=== PATIENT | male | born 1955 | race Caucasian/White ===

== ENCOUNTER 2018-06-20 09:05 | Day surgery (SDC) | payer OTHER, MEDICAID, SELFPAY ==
[2018-06-20 09:32] VITALS: BP 116/75; PULSE 59; RESP 18; TEMP 36.7; O2SAT 97
[2018-06-20] MEDS: SODIUM CHLORIDE 0.9% 1,000 ML 70 ML IV (09:43)
--- NOTE | 2018-06-20 10:12 | PM.HP.1 ---
History of Present Illness Date Patient Seen: 06/20/18 Chief complaint: [id number] SCREENING COLONOSCOPY W/POSS BX Narrative: 63-year-old male who is here for colon cancer screening. The patient states he had a colonoscopy done around 5 years ago and was told he needed to come back in 5 years. I do not have that report available to me. He denies any history of colon polyps or family history of colon cancer. He denies any GI bleeding at present. He has stopped Plavix for 5 days in preparation for this procedure Patient History Family & Social History Social History: household members none Tobacco & Substance use: Smoking Status Current every day smoker alcohol intake current Meds Home Medications Medication Instructions Recorded Confirmed Type [MULTIPLE VITAMINS] QDAY #0 11/07/12 05/03/18 History fluticasone 0.05 mg INTRANASAL Q DAY PRN PRN 04/20/17 06/20/18 Rx #1 spr albuterol sulfate [Ventolin HFA] 2 puff INH Q4H PRN #8 gm 02/05/18 06/20/18 Rx atorvastatin 40 mg tablet 40 mg PO DAILY 05/03/18 06/20/18 History clopidogrel 75 mg tablet 75 mg PO DAILY 05/03/18 06/20/18 History metoprolol succinate ER 50 mg 50 mg PO DAILY 05/03/18 06/20/18 History tablet,extended release 24 hr Allergies Allergy/AdvReac Type Severity Reaction Status Date / Time penicillin G Allergy Mild HIVES Verified 06/20/18 09:29 Review of Systems Review of Systems All systems reviewed & are unremarkable except as noted in HPI and below Exam Vital Signs (past 8 hours): - 06/20/18 09:32 Temperature 98.0 F Pulse Rate 59 L Respiratory Rate 18 Blood Pressure 116/75 Pulse Oximetry 97 Oxygen Delivery Method Room Air Narrative Exam Narrative: The patient currently denies any abdominal pain or abdominal discomfort. Patient denies any fevers or chills. The patient General: Patient is well developed, not in apparent distress Cardiovascular: Regular rhythm, bradycardic, no murmurs, rubs, or gallops; no evidence of edema; no palpable abdominal aortic aneurysm Gastrointestinal: Normoactive bowel sounds, soft, nontender, nondistended, no rebound tenderness, no hepatosplenomegaly, no evidence of hernia Assessment & Plan Plan: Assessment/Plan Narrative: 63-year-old male here for colon cancer screening. Patient held Plavix in anticipation for the procedure. He is clinically stable at present Regarding the procedure(s), the risks and potential complications, benefits, and alternatives (including not doing the procedure) were discussed with the patient. The risks include but are not limited to bleeding, infection, perforation which may require surgical intervention, missed lesions, and adverse reactions to sedative medicines. After a question and answer period, the patient agreed to proceed with the procedure(s) and gives informed consent.
--- NOTE | 2018-06-20 10:46 | PM.OP.ENDO ---
Operative Date/Time/Diagnoses Date of procedure: 06/20/18 Procedure Notes Procedure in detail: Surgeon: Drake Jaramillo MD Procedure: Colonoscopy with polypectomy Preoperative diagnosis: Colon cancer screening Postoperative diagnosis: Colon polyp status post polypectomy, grade 1 internal hemorrhoids Medications: Conscious sedation using 4 mg IV of Midazolam and 100 mcg IV of Fentanyl Preanesthesia Assessment An H and P was performed/updated and the Px?s ASA class is 2. The procedure was discussed in detail with the patient. The potential risks and complications including infection, bleeding, missed lesions, perforation, need for surgery in case of perforation, prolonged hospital stay, and were explained. A brief question and answer period was allotted and once all questions were answered, informed consent was obtained. The patient was brought back to the procedure room and placed on standard monitoring. The patient?s vital signs were monitored continuously throughout the entire procedure. Prior to starting, a timeout was performed to confirm the patient?s identity, allergies, medications, and procedure. Procedure in detail The patient was placed in left lateral decubitus position and once adequate sedation was obtained a BUFFY was performed. The digital rectal examination did not reveal any palpable lesions. The tip of the colonoscope was placed in the anal canal and advanced without difficulty all the way to the cecum which was identified by the appendiceal orifice and the ileocecal valve. The terminal ileum was intubated for distance of 5 cm with no evidence of mucosal abnormality. The colonoscope was brought back to the cecum and careful examination of all crump of the colon was performed with irrigation of any residual stool. In the sigmoid colon there was note of a 3 mm sessile polyp which was removed in its entirety by means of a cold Jumbo forceps with minimal bleeding. Examination of the remainder of the colon revealed no further mucosal lesions. Retroflexion was performed in the rectum which revealed grade 1 internal hemorrhoids. The patient tolerated the procedure well and will be brought back to the recovery area to be discharged once criteria are met. The prep was judged to be good/excellent and adequate to identify polyps less than 5 mm. The withdrawal time was 9 min. The total procedure time from initial sedation was 13 min. Complications There were no complications and estimated blood loss was minimal. Recommendations: Resume previous diet Resume Plavix today Continue outPx medications Follow up pathology results Repeat colonoscopy in 5 or 10 years depending on pathology results An emergency contact number was given to the patient for any complications related to the procedure
[2018-06-20] MEDS: MIDAZOLAM 5 MG/5 ML VIAL IV (10:54)
[2018-06-20] MEDS: fentaNYL 250 MCG/5 ML INJ IV (10:55)
[2018-06-20 11:05] VITALS: BP 108/72; PULSE 57; RESP 14; TEMP 36.1; O2SAT 94
--- NOTE | 2018-06-20 11:05 | PM.DS.1 ---
History of Present Illness Chief complaint: [id number] SCREENING COLONOSCOPY W/POSS BX Narrative: 63-year-old male who is here for colon cancer screening. The patient states he had a colonoscopy done around 5 years ago and was told he needed to come back in 5 years. I do not have that report available to me. He denies any history of colon polyps or family history of colon cancer. He denies any GI bleeding at present. He has stopped Plavix for 5 days in preparation for this procedure Discharge Providers Primary care physician: Kingsley Gonzales MD Discharge provider: Drake Jaramillo MD Exam Vital Signs (past 8 hours): - 06/20/18 09:32 Temperature 98.0 F Pulse Rate 59 L Respiratory Rate 18 Blood Pressure 116/75 Pulse Oximetry 97 Oxygen Delivery Method Room Air Narrative Exam Narrative: General: Patient is well developed, not in apparent distress Cardiovascular: Regular rate and rhythm, no murmurs, rubs, or gallops; no evidence of edema; no palpable abdominal aortic aneurysm Gastrointestinal: Normoactive bowel sounds, soft, nontender, nondistended, no rebound tenderness, no hepatosplenomegaly, no evidence of hernia Discharge Plan Discharge Plan Patient Disposition: Home, Self-Care Discharge Med Rec/Prescriptions Prescriptions: Continue metoprolol succinate 50 mg tablet extended release 24 hr 50 mg PO DAILY RF: 0 clopidogrel 75 mg tablet 75 mg PO DAILY RF: 0 atorvastatin 40 mg tablet 40 mg PO DAILY RF: 0 [MULTIPLE VITAMINS] QDAY Qty: 0 RF: 0 fluticasone 16 GM spray,suspension 0.05 mg Intranasal Q DAY PRN PRNQty: 1 RF: 5 albuterol sulfate [Ventolin HFA] 90 MCG/PUFF HFA aerosol inhaler 2 puff INH Q4H PRNQty: 8 RF: 5 Discharge Orders: Discharge (Order); Ordered 06/20/18 Ordered By: Drake Jaramillo Provider Discharge Instructions Diet: Diet as Tolerated Visit Report/Discharge Packet Stand Alone Forms: Surgery Discharge Discharge Data Primary Care Provider: Kingsley Gonzales Attending Provider: Drake Jaramillo
--- NOTE | 2018-06-20 22:18 | PATH_ITS ---
Specimen ID: [id number] Control ID: [facility] PATHOLOGY ONLY [id number] [address] Patient Details KELY WILLAMS : 1955 Age(y/m/d): Gender: M SSN: Additional Information: Clinical Info: [id number] Specimen Details Date collected: 06/20/20182217 Local Date received: 06/20/2018 Date entered: 06/20/2018 Date reported: 06/22/20182006 ET Physician Details Ordering: Consuelo DINH Referring: ID: Pathology Report Tests Ordered: Clinician Provided ICD Code(s) & Clinical History: Material Submitted: () Gross Description: (01) Received one formalin-filled container labeled with the patient's name and labeled sigmoid polyp. The specimen consists of a 0.3 cm portion of tissue, entirely submitted in one cassette. ([id number]) /FRR SIGMOID COLON POLYP Diagnosis: (02) Sigmoid Colon Polyp: Hyperplastic polyp. MRV/06/21/2018 Pathologist Provided ICD Code(s): (02) D12.6 CPT Codes: (02) 614004 ADDENDUM: This amendment is issued in order for the results to cross the electronic interface. The final diagnosis is unchanged. OZO/06/22/2018 Addendum Electronically Signed by Diamond Oconnor MD, Pathologist Electronically signed by (02) Teofilo Watts MD, Pathologist NPI- [id number]
== END 2018-06-20 11:23 | disposition home or self-care (01) ==
PROVIDERS: PCP Family Medicine; Visit Provider Internal Medicine Gastroenterology
PROC: 0DJD8ZZ Inspection of Lower Intestinal Tract, Via Natural or Artificial Opening Endoscopic (ICD-10-PCS; CPT 45378; principal; 2018-06-20 10:30)
DX: Z12.11 Encounter for screening for malignant neoplasm of colon (principal); K64.0 First degree hemorrhoids; F17.210 Nicotine dependence, cigarettes, uncomplicated; D12.5 Benign neoplasm of sigmoid colon
CPT/HCPCS: 45380; 88305; J2250; J3010

== ENCOUNTER → 2019-02-28 08:35 | Outpatient (CLI) | payer MEDICARE, SELFPAY ==
[2019-02-28 10:25] LABS: Blood Urea Nitrogen 16 mg/dL (9-20); Calcium 9.9 mg/dL (8.4-10.2); Carbon Dioxide 26 mmol/L (22-32); Chloride 103 mmol/L (98-107); Cholesterol 139 mg/dL (140-199); Estimated Glomerular Filt Rate > 60.0 mL/min (>60); Glucose 142 mg/dL (80-110); HDL Cholesterol 69 mg/dL (40-60); HEMOLYSIS < 15 (0-50); LDL Cholesterol Calculated 63 mg/dL (<100); Potassium 4.5 mmol/L (3.4-5.1); Sodium 137 mmol/L (137-145); Triglycerides 37 mg/dL (35-150)
== END ==
PROVIDERS: PCP Student in an Organized Health Care Education/Training Program; Visit Provider Internal Medicine Interventional Cardiology
DX: I25.10 Atherosclerotic heart disease of native coronary artery without angina pectoris (principal)
CPT/HCPCS: 36415; 80048; 80061

== ENCOUNTER → 2019-08-12 10:41 | Outpatient (CLI) | payer MEDICARE, SELFPAY ==
[2019-08-12 13:01] LABS: Vitamin D 25 Hydroxy (D3) 50.9 ng/mL (30.0-100.0)
[2019-08-12 13:05] LABS: Prostate Specific Antigen Scrn 0.972 ng/mL (0.1-4.0)
[2019-08-12 14:12] LABS: Procalcitonin < 0.05 ng/mL (<0.5)
--- NOTE | 2019-08-12 14:47 | DI.RAD.S_ITS ---
PROCEDURE: XR CHEST 2V INDICATIONS: Cough, wheeze TECHNIQUE: 2 views of the chest were acquired. COMPARISON: [facility], , CHEST 2 VIEW, 10/19/2015, 14:53. FINDINGS: Surgical changes and devices: None. Lungs and pleura: Mildly increased buccal vascular markings and bilateral hilar region are seen with mild bronchial wall thickening suggestive of reactive airway disease. No focal infiltrate. No pleural effusions or pneumothorax. Mediastinum: Mediastinal contours are normal. Heart size is normal. Bones and chest wall: No suspicious bony abnormalities. Soft tissues appear unremarkable. IMPRESSION: Findings suggestive of reactive airway disease such as bronchitis or asthma. No focal infiltrate. Dictated by: Alexandru Velez M.D. on 08/12/2019 at 16:20 Approved by: Alexandru Velez M.D. on 08/12/2019 at 16:21
== END ==
PROVIDERS: PCP Student in an Organized Health Care Education/Training Program; Visit Provider Student in an Organized Health Care Education/Training Program
DX: Z12.5 Encounter for screening for malignant neoplasm of prostate (principal); E55.9 Vitamin D deficiency, unspecified; J22 Unspecified acute lower respiratory infection; R05 Cough; R06.2 Wheezing
CPT/HCPCS: 36415; 71046; 82306; 84145; G0103

== ENCOUNTER → 2021-07-29 08:26 | Outpatient (CLI) | payer MEDICARE, SELFPAY ==
[2021-07-29 10:25] LABS: BUN Creatinine Ratio 25.4 (6-22); Blood Urea Nitrogen 18 mg/dL (9-20); Calcium 9.4 mg/dL (8.4-10.2); Carbon Dioxide 28 mmol/L (22-32); Chloride 106 mmol/L (98-107); Cholesterol 189 mg/dL (140-199); Estimated Glomerular Filt Rate > 60.0 mL/min (>60); Glucose 100 mg/dL (80-110); HDL Cholesterol 55 mg/dL (40-60); HEMOLYSIS < 15 (0-50); LDL Cholesterol Calculated 110 mg/dL (<100); Potassium 4.2 mmol/L (3.4-5.1); Sodium 139 mmol/L (137-145); Triglycerides 122 mg/dL (35-150)
== END ==
PROVIDERS: PCP Student in an Organized Health Care Education/Training Program; Referring Provider Internal Medicine Interventional Cardiology; Visit Provider Internal Medicine Interventional Cardiology
DX: E78.5 Hyperlipidemia, unspecified (principal); I25.10 Atherosclerotic heart disease of native coronary artery without angina pectoris
CPT/HCPCS: 36415; 80048; 80061

== ENCOUNTER → 2021-08-18 13:47 | Outpatient (CLI) | payer MEDICARE, SELFPAY ==
--- NOTE | 2021-08-18 13:48 | DI.NM.S_ITS ---
PROCEDURE: EXERCISE TREADMILL NON NUC COMPARISON: None. INDICATIONS: Presence of coronary angioplasty implant and graft FINDINGS: Resting ECG sinus rhythm. Resting blood pressure 118/80. Reynaldo protocol, 9 minutes, 53 seconds; 12.8 METS; SIMA -23%. Stress ECG sinus tachycardia, occasional PVCs with peak exercise and early in recovery, no ST segment changes. Peak heart rate 146 bpm, 94% peak predicted. Maximum blood pressure 172/100. IMPRESSION: 1. No evidence of exercise-induced ischemia. 2. Excellent exercise capacity. 3. Normal blood pressure response to exercise. Dictated by: Maricruz Mckeon D.O. on 08/19/2021 at 17:56 Approved by: Maricruz Mckeon M.D. on 08/19/2021 at 18:00
[2021-08-18 15:29] LABS: COVID19 -Nasal RAPID Negative (Negative)
== END ==
PROVIDERS: PCP Student in an Organized Health Care Education/Training Program; Referring Provider Internal Medicine Interventional Cardiology; Visit Provider Internal Medicine Interventional Cardiology
DX: I25.10 Atherosclerotic heart disease of native coronary artery without angina pectoris (principal); Z20.822 Contact with and (suspected) exposure to COVID-19; Z95.5 Presence of coronary angioplasty implant and graft
CPT/HCPCS: 87635; 93017

== ENCOUNTER → 2022-05-11 09:11 | Outpatient (CLI) | payer MEDICARE, SELFPAY ==
--- NOTE | 2022-05-11 09:12 | DI.US.S_ITS ---
PROCEDURE: US ABD AORTA ANEURYSM SCREEN INDICATIONS: AORTA SCREENING TECHNIQUE: Real time scanning was performed of the aorta and iliac arteries, with image documentation. COMPARISON: None. FINDINGS: Aorta: Proximal aortic diameter measures 2.7 cm. Mid-aorta measures 2.5 cm. Distal aortic diameter is 2.1 cm. Iliac arteries: Right common iliac artery measures 1 cm. Left common iliac artery measures 1.1 cm. IMPRESSION: Negative for aneurysm. Dictated by: Maximino Huff M.D. on 05/11/2022 at 8:53 Approved by: Maximino Huff M.D. on 05/11/2022 at 8:53
== END ==
PROVIDERS: PCP Student in an Organized Health Care Education/Training Program; Referring Provider Student in an Organized Health Care Education/Training Program; Visit Provider Student in an Organized Health Care Education/Training Program
DX: Z87.891 Personal history of nicotine dependence (principal)
CPT/HCPCS: 76706

== ENCOUNTER → 2022-09-09 07:26 | Outpatient (CLI) | payer MEDICARE, SELFPAY ==
[2022-09-09 08:38] LABS: Add Manual Diff / Slide Review NO; Basophils Absolute Auto 0 /uL (0-100); Basophils Percent Auto 0.5 % (0-2); Eosinophils Absolute Auto 200 /uL (0-450); Eosinophils Percent Auto 3.4 % (2-4); Hematocrit 47.1 % (41-53); Hemoglobin 15.9 g/dL (13.5-17.5); Lymphocytes Absolute Auto 2000 /uL (1100-4500); Lymphocytes Percent Auto 28.6 % (25-40); Mean Corpuscular HGB Conc 33.8 % (30-36); Mean Corpuscular Hemoglobin 34.1 PG (26-34); Mean Corpuscular Volume 100.9 fL (80-100); Monocytes Absolute Auto 600 /uL (0-900); Monocytes Percent Auto 8.1 % (3-14); Neutrophils Absolute Auto 4100 /uL (1500-7000); Neutrophils Percent Auto 59.4 % (50-75); Platelet Count 241 X10^3/uL (150-400); Red Blood Cell Count 4.67 X10^6/uL (4.5-5.9); Red Cell Distribution Width 13.3 % (11.6-14.8); White Blood Cell Count 6.8 X10^3/uL (4.5-11.0)
[2022-09-09 08:55] LABS: Alanine Aminotransferase 24 IU/L (<50); Albumin 4.3 g/dL (3.5-5.0); Albumin Globulin Ratio 1.7 (1.0-2.8); Alkaline Phosphatase 74 U/L (38-126); Aspartate Aminotransferase 28 IU/L (17-59); Bilirubin Total 0.4 mg/dL (0.2-1.3); Blood Urea Nitrogen 20 mg/dL (9-20); Calcium 9.3 mg/dL (8.4-10.2); Carbon Dioxide 28 mmol/L (22-32); Chloride 103 mmol/L (98-107); Cholesterol 174 mg/dL (140-199); Estimated Glomerular Filt Rate > 60 mL/min (>60); Globulin 2.6 g/dL (1.7-4.1); Glucose 96 mg/dL (80-110); HDL Cholesterol 63 mg/dL (40-60); HEMOLYSIS < 15 (0-50); LDL Cholesterol Calculated 96 mg/dL (<100); Potassium 4.6 mmol/L (3.4-5.1); Sodium 141 mmol/L (137-145); Total Protein 6.9 g/dL (6.3-8.2); Triglycerides 77 mg/dL (35-150)
[2022-09-09 09:21] LABS: Prostate Specific Antigen Scrn 1.51 ng/mL (0.1-4.0)
== END ==
PROVIDERS: PCP Student in an Organized Health Care Education/Training Program; Referring Provider Student in an Organized Health Care Education/Training Program; Visit Provider Student in an Organized Health Care Education/Training Program
DX: E78.2 Mixed hyperlipidemia (principal); I10 Essential (primary) hypertension; Z12.5 Encounter for screening for malignant neoplasm of prostate; I25.10 Atherosclerotic heart disease of native coronary artery without angina pectoris
CPT/HCPCS: 36415; 80053; 80061; 85025; G0103

== ENCOUNTER 2023-03-02 08:15 | Outpatient (RCR) | payer MEDICARE, SELFPAY ==
--- NOTE | 2023-02-02 08:10 | PT.OIE ---
Current Diagnoses Pain in right hip (02/02/23) Pain in left hip (02/02/23) Past Medical History (Last Reviewed 06/24/21 @ 09:12 by Antonette Buck MA) Colon polyps Hemorrhoid Shoulder pain Visit Care Team Role Provider Type Ernesto Newell MD Attending Provider Physician Family Provider Primary Care Provider Referring Provider Specialty: Internal Medicine Address: [address] [place] [address], [address], [facility] Email: [email or web address] Physical Therapy Initial Evaluation PT-OP-A Visit Information Start: 02/02/23 08:09 Freq: Status: Active Protocol: Document 02/09/23 08:35 TH (Rec: 02/02/23 16:06 TH [id number]) Out-Patient Physical Therapy Visit Information Visit Information Visit Type Initial Evaluation Visit Start Time 08:15 Visit Stop Time 09:00 Total Visit Minutes 45 Visit Number 1 Number of FURNACE OPERATOR AND TENDER Visits 0 PT-OP-B Current Condition Start: 02/02/23 08:09 Freq: Status: Active Protocol: Document 02/09/23 08:35 TH (Rec: 02/02/23 16:06 TH [id number]) Current Condition History of Current Condition History of Current Condition Pt states that he started to feel bilateral hip pain after changing up his job duties. Pt . is now ambulating more than he had before and moving more stock items around. Pain feels like a pinch when up and walking to a constant ache. Prolonged sitting and walking , transfers sit<>stand are most bothersome. 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 PT-OP-K Range of Motion Start: 02/02/23 08:09 Freq: Status: Active Protocol: Document 02/09/23 08:35 TH (Rec: 02/02/23 16:06 TH [id number]) Lumbar Spine Range of Motion Lumbar Spine Active Flexion 35 Comments Increased weight shift left LE , increased APT, leg length discrepancy left shorter than right, right innominate ant. rot. left, tight ER bilat. , weak hip abd, left SI J hypomobile, hypomobile lumbar spine in flexion. Palpation: tenderness bilat piriformis, gluteus med., Lumbar ROM flex: 35 ext: WNL rot. R = 35 rot l: 20 PT-OP-M Strength Start: 02/02/23 08:09 Freq: Status: Active Protocol: Document 02/09/23 08:35 TH (Rec: 02/02/23 16:06 TH [id number]) Hip Strength Hip Manual Muscle Testing l/r Flexion (L2) 4+ Good+ Extension (S1) 4- Good- Abduction 4- Good- PT-OP-Q Treatments Start: 02/02/23 08:09 Freq: Status: Active Protocol: Document 02/09/23 08:35 TH (Rec: 02/02/23 16:06 TH [id number]) Therapeutic Exercises Other Exercises hamstring stretch Comments 1 x 3 30 sec hold hip flexor stretch Comments 1 x 3 off EOB piriformis stretch Comments 1 x 3 30 sec holds Self-Care/Home Management Treatment Education Patient Education Home Exercise Program Other Education Access Code: [email or web address] URL: [email or web address] Date: 02/02/2023 Prepared by: Sneha Goff Exercises Hooklying Isometric Clamshell - 1 x daily - 7 x weekly - 3 sets - 10 reps Seated Piriformis Stretch with Trunk Bend - 1 x daily - 7 x weekly - 1 sets - 3 reps - 30- 60 sec hold Seated Hamstring Stretch - 1 x daily - 7 x weekly - 1 sets - 3 reps - 30-60sec hold Supine Quadriceps Stretch with Strap on Table - 1 x daily - 7 x weekly - 1 sets - 3 reps - 30-60 sec hold PT-OP-T Assessment and Plan Start: 02/02/23 08:09 Freq: Status: Active Protocol: Document 02/09/23 08:35 TH (Rec: 02/02/23 16:06 TH [id number]) Physical Therapy Assessment Goals 3 Impairment weak gluteus max/med. Short Term Goal (STG) Bilat. glute max/ med will improve to 4/5 STG Duration 03/16/23 Chcf Goal (LTG) Bilat. glute max/med will improve to 5/5 LTG Duration 04/20/23 2 Impairment Lifting weighted boxes repetively causes pain flare. ( work activity) Short Term Goal (STG) Pt will be able to lift 10 lb weighted box from hip level surface and place on higher surface a total of 10 times with minimal hip pain. STG Duration 03/16/23 Chcf Goal (LTG) Pt will be able to lift 10 lb weighted box from hip level surface and place on higher surface a total of 2 x10 times with no hip pain. LTG Duration 04/20/23 1 Impairment Difficult to walk/stand for long periods of time. Short Term Goal (STG) Pt will be able to stand/walk for >= 30 min with bilat hip pain <=4/10. STG Duration 03/16/23 Chcf Goal (LTG) Pt will be able to stand/walk for >= 45 min with minimal to no bilat hip pain LTG Duration 04/20/23 Physical Therapy Plan Frequency and Duration Frequency of Treatment 1-2x Duration of treatment (weeks) 12 Plan of Care Start Date 02/02/23 Plan of Care End Date 05/04/23
--- NOTE | 2023-02-02 16:07 | PT.OTN ---
Current Diagnoses Pain in right hip (02/02/23) Pain in left hip (02/02/23) Physical Therapy Treatment Note PT-OP-A Visit Information Start: 02/02/23 08:09 Freq: Status: Active Protocol: Document 02/02/23 08:10 TH (Rec: 02/02/23 16:06 [id number]) Out-Patient Physical Therapy Visit Information Visit Information Visit Type Initial Evaluation Visit Start Time 08:15 Visit Stop Time 09:00 Total Visit Minutes 45 Visit Number 1 Number of MAIL LIST PROCESSOR Visits 0 PT-OP-B Current Condition Start: 02/02/23 08:09 Freq: Status: Active Protocol: Document 02/02/23 08:10 TH (Rec: 02/02/23 16:06 [id number]) Current Condition History of Current Condition History of Current Condition Pt states that he started to feel bilateral hip pain after changing up his job duties. Pt . is now ambulating more than he had before and moving more stock items around. Pain feels like a pinch when up and walking to a constant ache. Prolonged sitting and walking , transfers sit<>stand are most bothersome. 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 PT-OP-K Range of Motion Start: 02/02/23 08:09 Freq: Status: Active Protocol: Document 02/02/23 08:10 TH (Rec: 02/02/23 16:06 [id number]) Lumbar Spine Range of Motion Lumbar Spine Active Flexion 35 Comments Increased weight shift left LE , increased APT, leg length discrepancy left shorter than right, right innominate ant. rot. left, tight ER bilat. , weak hip abd, left SI J hypomobile, hypomobile lumbar spine in flexion. Palpation: tenderness bilat piriformis, gluteus med., Lumbar ROM flex: 35 ext: WNL rot. R = 35 rot l: 20 PT-OP-M Strength Start: 02/02/23 08:09 Freq: Status: Active Protocol: Document 02/02/23 08:10 TH (Rec: 02/02/23 16:06 TH [id number]) Hip Strength Hip Manual Muscle Testing l/r Flexion (L2) 4+ Good+ Extension (S1) 4- Good- Abduction 4- Good- PT-OP-Q Treatments Start: 02/02/23 08:09 Freq: Status: Active Protocol: Document 02/02/23 08:10 TH (Rec: 02/02/23 16:06 TH [id number]) Therapeutic Exercises Other Exercises hamstring stretch Comments 1 x 3 30 sec hold hip flexor stretch Comments 1 x 3 off EOB piriformis stretch Comments 1 x 3 30 sec holds Self-Care/Home Management Treatment Education Patient Education Home Exercise Program Other Education Access Code: [email or web address] URL: [email or web address] Date: 02/02/2023 Prepared by: Sneha Goff Exercises Hooklying Isometric Clamshell - 1 x daily - 7 x weekly - 3 sets - 10 reps Seated Piriformis Stretch with Trunk Bend - 1 x daily - 7 x weekly - 1 sets - 3 reps - 30- 60 sec hold Seated Hamstring Stretch - 1 x daily - 7 x weekly - 1 sets - 3 reps - 30-60sec hold Supine Quadriceps Stretch with Strap on Table - 1 x daily - 7 x weekly - 1 sets - 3 reps - 30-60 sec hold PT-OP-T Assessment and Plan Start: 02/02/23 08:09 Freq: Status: Active Protocol: Document 02/02/23 08:10 TH (Rec: 02/02/23 16:06 TH [id number]) Physical Therapy Assessment Goals 3 Impairment weak gluteus max/med. Short Term Goal (STG) Bilat. glute max/ med will improve to 4/5 STG Duration 03/16/23 Correction Goal (LTG) Bilat. glute max/med will improve to 5/5 LTG Duration 04/20/23 2 Impairment Lifting weighted boxes repetively causes pain flare. ( work activity) Short Term Goal (STG) Pt will be able to lift 10 lb weighted box from hip level surface and place on higher surface a total of 10 times with minimal hip pain. STG Duration 03/16/23 Correction Goal (LTG) Pt will be able to lift 10 lb weighted box from hip level surface and place on higher surface a total of 2 x10 times with no hip pain. LTG Duration 04/20/23 1 Impairment Difficult to walk/stand for long periods of time. Short Term Goal (STG) Pt will be able to stand/walk for >= 30 min with bilat hip pain <=4/10. STG Duration 03/16/23 Correction Goal (LTG) Pt will be able to stand/walk for >= 45 min with minimal to no bilat hip pain LTG Duration 04/20/23 Physical Therapy Plan Frequency and Duration Frequency of Treatment 1-2x Duration of treatment (weeks) 12 Plan of Care Start Date 02/02/23 Plan of Care End Date 05/04/23
--- NOTE | 2023-02-02 16:08 | PT.OPPOC ---
Physical, Occupational & Speech Therapy At [facility] Current Diagnoses Pain in right hip (02/02/23) Pain in left hip (02/02/23) Visit Care Team Role Provider Type Ernesto Newell MD Attending Provider Physician Family Provider Primary Care Provider Referring Provider Specialty: Internal Medicine Address: [address] [place] [address], [facility] Email: [email or web address] Plan Of Care PT-OP-T Assessment and Plan Start: 02/02/23 08:09 Freq: Status: Active Protocol: Document 02/02/23 08:10 TH (Rec: 02/02/23 16:06 TH [id number]) Physical Therapy Assessment Goals 3 Impairment weak gluteus max/med. Short Term Goal (STG) Bilat. glute max/ med will improve to 4/5 STG Duration 03/16/23 Group Home Goal (LTG) Bilat. glute max/med will improve to 5/5 LTG Duration 04/20/23 2 Impairment Lifting weighted boxes repetively causes pain flare. ( work activity) Short Term Goal (STG) Pt will be able to lift 10 lb weighted box from hip level surface and place on higher surface a total of 10 times with minimal hip pain. STG Duration 03/16/23 Group Home Goal (LTG) Pt will be able to lift 10 lb weighted box from hip level surface and place on higher surface a total of 2 x10 times with no hip pain. LTG Duration 04/20/23 1 Impairment Difficult to walk/stand for long periods of time. Short Term Goal (STG) Pt will be able to stand/walk for >= 30 min with bilat hip pain <=4/10. STG Duration 03/16/23 Kennel Assistant Goal (LTG) Pt will be able to stand/walk for >= 45 min with minimal to no bilat hip pain LTG Duration 04/20/23 Physical Therapy Plan Frequency and Duration Frequency of Treatment 1-2x Duration of treatment (weeks) 12 Plan of Care Start Date 02/02/23 Plan of Care End Date 05/04/23 Plan of Care Dates Plan of Care Start Date 02/02/23 Plan of Care End Date 05/04/23 Electronically Signed by: Sneha Goff, PT 02/02/23 1608 If you are in agreement with this Plan of Care, please return a signed and dated copy. I have reviewed this Plan of Care and certify that the skilled therapy services above are required to meet the patient?s needs. Physician Signature Date Printed Name and Credentials Clinical Instructor Signature Printed Name and Credentials
--- NOTE | 2023-02-09 08:12 | PT.OIE ---
Current Diagnoses Pain in right hip (02/02/23) Pain in left hip (02/02/23) Past Medical History (Last Reviewed 06/24/21 @ 09:12 by Antonette Buck MA) Colon polyps Hemorrhoid Shoulder pain Visit Care Team Role Provider Type Ernesto Newell MD Attending Provider Physician Family Provider Primary Care Provider Referring Provider Specialty: Internal Medicine Address: [address] [place] [address], [address], [facility] Email: [email or web address] Physical Therapy Initial Evaluation PT-OP-A Visit Information Start: 02/02/23 08:09 Freq: Status: Active Protocol: Document 02/02/23 08:10 TH (Rec: 02/02/23 16:06 [id number]) Out-Patient Physical Therapy Visit Information Visit Information Visit Type Initial Evaluation Visit Start Time 08:15 Visit Stop Time 09:00 Total Visit Minutes 45 Visit Number 1 Number of SINTERING PLANT SUPERVISOR Visits 0 PT-OP-B Current Condition Start: 02/02/23 08:09 Freq: Status: Active Protocol: Document 02/02/23 08:10 TH (Rec: 02/02/23 16:06 [id number]) Current Condition History of Current Condition History of Current Condition Pt states that he started to feel bilateral hip pain after changing up his job duties. Pt . is now ambulating more than he had before and moving more stock items around. Pain feels like a pinch when up and walking to a constant ache. Prolonged sitting and walking , transfers sit<>stand are most bothersome. 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 PT-OP-K Range of Motion Start: 02/02/23 08:09 Freq: Status: Active Protocol: Document 02/02/23 08:10 TH (Rec: 02/02/23 16:06 [id number]) Lumbar Spine Range of Motion Lumbar Spine Active Flexion 35 Comments Increased weight shift left LE , increased APT, leg length discrepancy left shorter than right, right innominate ant. rot. left, tight ER bilat. , weak hip abd, left SI J hypomobile, hypomobile lumbar spine in flexion. Palpation: tenderness bilat piriformis, gluteus med., Lumbar ROM flex: 35 ext: WNL rot. R = 35 rot l: 20 PT-OP-M Strength Start: 02/02/23 08:09 Freq: Status: Active Protocol: Document 02/02/23 08:10 TH (Rec: 02/02/23 16:06 TH [id number]) Hip Strength Hip Manual Muscle Testing l/r Flexion (L2) 4+ Good+ Extension (S1) 4- Good- Abduction 4- Good- PT-OP-Q Treatments Start: 02/02/23 08:09 Freq: Status: Active Protocol: Document 02/02/23 08:10 TH (Rec: 02/02/23 16:06 TH [id number]) Therapeutic Exercises Other Exercises hamstring stretch Comments 1 x 3 30 sec hold hip flexor stretch Comments 1 x 3 off EOB piriformis stretch Comments 1 x 3 30 sec holds Self-Care/Home Management Treatment Education Patient Education Home Exercise Program Other Education Access Code: [email or web address] URL: [email or web address] Date: 02/02/2023 Prepared by: Sneha Goff Exercises Hooklying Isometric Clamshell - 1 x daily - 7 x weekly - 3 sets - 10 reps Seated Piriformis Stretch with Trunk Bend - 1 x daily - 7 x weekly - 1 sets - 3 reps - 30- 60 sec hold Seated Hamstring Stretch - 1 x daily - 7 x weekly - 1 sets - 3 reps - 30-60sec hold Supine Quadriceps Stretch with Strap on Table - 1 x daily - 7 x weekly - 1 sets - 3 reps - 30-60 sec hold PT-OP-T Assessment and Plan Start: 02/02/23 08:09 Freq: Status: Active Protocol: Document 02/02/23 08:10 TH (Rec: 02/02/23 16:06 TH [id number]) Physical Therapy Assessment Goals 3 Impairment weak gluteus max/med. Short Term Goal (STG) Bilat. glute max/ med will improve to 4/5 STG Duration 03/16/23 Long-Term Goal (LTG) Bilat. glute max/med will improve to 5/5 LTG Duration 04/20/23 2 Impairment Lifting weighted boxes repetively causes pain flare. ( work activity) Short Term Goal (STG) Pt will be able to lift 10 lb weighted box from hip level surface and place on higher surface a total of 10 times with minimal hip pain. STG Duration 03/16/23 Long-Term Goal (LTG) Pt will be able to lift 10 lb weighted box from hip level surface and place on higher surface a total of 2 x10 times with no hip pain. LTG Duration 04/20/23 1 Impairment Difficult to walk/stand for long periods of time. Short Term Goal (STG) Pt will be able to stand/walk for >= 30 min with bilat hip pain <=4/10. STG Duration 03/16/23 Long-Term Goal (LTG) Pt will be able to stand/walk for >= 45 min with minimal to no bilat hip pain LTG Duration 04/20/23 Physical Therapy Plan Frequency and Duration Frequency of Treatment 1-2x Duration of treatment (weeks) 12 Plan of Care Start Date 02/02/23 Plan of Care End Date 05/04/23
--- NOTE | 2023-03-02 09:06 | PT.OTN ---
Current Diagnoses Pain in right hip (03/02/23) Pain in left hip (03/02/23) Physical Therapy Treatment Note PT-OP-A Visit Information Start: 02/02/23 08:09 Freq: Status: Active Protocol: Document 03/02/23 08:23 TH (Rec: 03/02/23 09:05 [id number]) Out-Patient Physical Therapy Visit Information Visit Information Visit Type Treatment Note Visit Start Time 08:15 Visit Stop Time 09:00 Total Visit Minutes 45 Visit Number 2 Number of REPRODUCTION SPECIALIST Visits 0 PT-OP-B Current Condition Start: 02/02/23 08:09 Freq: Status: Active Protocol: Document 02/02/23 08:10 TH (Rec: 02/02/23 16:06 [id number]) Current Condition History of Current Condition History of Current Condition Pt states that he started to feel bilateral hip pain after changing up his job duties. Pt . is now ambulating more than he had before and moving more stock items around. Pain feels like a pinch when up and walking to a constant ache. Prolonged sitting and walking , transfers sit<>stand are most bothersome. 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 PT-OP-C Subjective Start: 02/02/23 08:09 Freq: Status: Active Protocol: Document 03/02/23 08:23 TH (Rec: 03/02/23 09:05 TH [id number]) OP-PT Subjective Patient Comments Patient Comments Pt states that bilat. hip pain is not as bad as it had been. He has been doing some of the assigned stretches and less activity. PT-OP-K Range of Motion Start: 02/02/23 08:09 Freq: Status: Active Protocol: Document 02/02/23 08:10 TH (Rec: 02/02/23 16:06 TH [id number]) Lumbar Spine Range of Motion Lumbar Spine Active Flexion 35 Comments Increased weight shift left LE , increased APT, leg length discrepancy left shorter than right, right innominate ant. rot. left, tight ER bilat. , weak hip abd, left SI J hypomobile, hypomobile lumbar spine in flexion. Palpation: tenderness bilat piriformis, gluteus med., Lumbar ROM flex: 35 ext: WNL rot. R = 35 rot l: 20 PT-OP-M Strength Start: 02/02/23 08:09 Freq: Status: Active Protocol: Document 02/02/23 08:10 TH (Rec: 02/02/23 16:06 TH [id number]) Hip Strength Hip Manual Muscle Testing l/r Flexion (L2) 4+ Good+ Extension (S1) 4- Good- Abduction 4- Good- PT-OP-Q Treatments Start: 02/02/23 08:09 Freq: Status: Active Protocol: Document 03/02/23 08:23 TH (Rec: 03/02/23 09:05 TH [id number]) Therapeutic Exercises Other Exercises hip hike Comments 1 x 10 5 sec holds ( 5 on each side) psoas release with tennis ball Comments bilat hips 2 min hip flexor stretch Comments 1 x 2 bilat 30 sec holds Manual Therapy Treatment Manual Techniques long axis traction Comments left LE iliopsoas release Comments right Self-Care/Home Management Treatment Education Other Education Access Code: [email or web address] URL: [email or web address]/ Date: 03/02/2023 Prepared by: Sneha Huiras Exercises - Hooklying Isometric Clamshell - 1 x daily - 7 x weekly - 3 sets - 10 reps - Seated Piriformis Stretch with Trunk Bend - 1 x daily - 7 x weekly - 1 sets - 3 reps - 30-60 sec hold - Seated Hamstring Stretch - 1 x daily - 7 x weekly - 1 sets - 3 reps - 30-60sec hold - Supine Quadriceps Stretch with Strap on Table - 1 x daily - 7 x weekly - 1 sets - 3 reps - 30-60 sec hold - Supine Hip Hike - 1 x daily - 7 x weekly - 1 sets - 10 reps PT-OP-T Assessment and Plan Start: 02/02/23 08:09 Freq: Status: Active Protocol: Document 03/02/23 08:23 TH (Rec: 03/02/23 09:05 TH [id number]) Physical Therapy Assessment Goals 3 Impairment weak gluteus max/med. Short Term Goal (STG) Bilat. glute max/ med will improve to 4/5 STG Duration 03/16/23 Window Repairer Goal (LTG) Bilat. glute max/med will improve to 5/5 LTG Duration 04/20/23 2 Impairment Lifting weighted boxes repetively causes pain flare. ( work activity) Short Term Goal (STG) Pt will be able to lift 10 lb weighted box from hip level surface and place on higher surface a total of 10 times with minimal hip pain. STG Duration 03/16/23 Window Repairer Goal (LTG) Pt will be able to lift 10 lb weighted box from hip level surface and place on higher surface a total of 2 x10 times with no hip pain. LTG Duration 04/20/23 1 Impairment Difficult to walk/stand for long periods of time. Short Term Goal (STG) Pt will be able to stand/walk for >= 30 min with bilat hip pain <=4/10. STG Duration 03/16/23 Retirement Goal (LTG) Pt will be able to stand/walk for >= 45 min with minimal to no bilat hip pain LTG Duration 04/20/23 Assessment Summary Assessment Pt making steady progress as demonstrated by decreased symptoms. Noted right hip remains ant. rot. left LE shorter than than right by about an half inch. After therapy left leg a quarter inch shorter. Physical Therapy Plan Frequency and Duration Frequency of Treatment 1-2x Duration of treatment (weeks) 12 Plan of Care Start Date 02/02/23 Plan of Care End Date 05/04/23 Therapeutic Interventions Therapeutic Interventions Balance Training,Coordination Training,Gait Training,Home Exercise Program,Joint Mobilizations,Manual Therapy, Neuromuscular Re-education, Orthotic/Prosthetic Management ,Patient/Caregiver Education, Self-Care/Home Management, Sensory Integration,Soft Tissue Mobilization,Taping, Therapeutic Activities, Therapeutic Exercises Next Visit Focus/Plan Next Visit Plan Manual hip strengthening ex. hip abd/ ext
--- NOTE | 2023-03-20 16:31 | PT.OPDS ---
Current Diagnoses Pain in right hip (03/02/23) Pain in left hip (03/02/23) Visit Care Team Role Provider Type Ernesto Newell MD Attending Provider Physician Family Provider Primary Care Provider Referring Provider Specialty: Internal Medicine Address: [address] [place] [address], [address], [facility] Email: [email or web address] Visit Number Visit Number 2 Discharge Summary PT-OP-B Current Condition Start: 02/02/23 08:09 Freq: Status: Active Protocol: Document 02/02/23 08:10 TH (Rec: 02/02/23 16:06 [id number]) Current Condition History of Current Condition History of Current Condition Pt states that he started to feel bilateral hip pain after changing up his job duties. Pt . is now ambulating more than he had before and moving more stock items around. Pain feels like a pinch when up and walking to a constant ache. Prolonged sitting and walking , transfers sit<>stand are most bothersome. 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 PT-OP-C Subjective Start: 02/02/23 08:09 Freq: Status: Active Protocol: Document 03/02/23 08:23 TH (Rec: 03/02/23 09:05 TH [id number]) OP-PT Subjective Patient Comments Patient Comments Pt states that bilat. hip pain is not as bad as it had been. He has been doing some of the assigned stretches and less activity. PT-OP-K Range of Motion Start: 02/02/23 08:09 Freq: Status: Active Protocol: Document 02/02/23 08:10 TH (Rec: 02/02/23 16:06 TH [id number]) Lumbar Spine Range of Motion Lumbar Spine Active Flexion 35 Comments Increased weight shift left LE , increased APT, leg length discrepancy left shorter than right, right innominate ant. rot. left, tight ER bilat. , weak hip abd, left SI J hypomobile, hypomobile lumbar spine in flexion. Palpation: tenderness bilat piriformis, gluteus med., Lumbar ROM flex: 35 ext: WNL rot. R = 35 rot l: 20 PT-OP-M Strength Start: 02/02/23 08:09 Freq: Status: Active Protocol: Document 02/02/23 08:10 TH (Rec: 02/02/23 16:06 TH [id number]) Hip Strength Hip Manual Muscle Testing l/r Flexion (L2) 4+ Good+ Extension (S1) 4- Good- Abduction 4- Good- PT-OP-T Assessment and Plan Start: 02/02/23 08:09 Freq: Status: Active Protocol: Document 03/20/23 16:31 [facility] (Rec: 03/20/23 16:31 [facility] [id number]) Physical Therapy Assessment Goals 3 Impairment weak gluteus max/med. Short Term Goal (STG) Bilat. glute max/ med will improve to 4/5 STG Duration 03/16/23 Coding Support Specialist Goal (LTG) Bilat. glute max/med will improve to 5/5 LTG Duration 04/20/23 2 Impairment Lifting weighted boxes repetively causes pain flare. ( work activity) Short Term Goal (STG) Pt will be able to lift 10 lb weighted box from hip level surface and place on higher surface a total of 10 times with minimal hip pain. STG Duration 03/16/23 Coding Support Specialist Goal (LTG) Pt will be able to lift 10 lb weighted box from hip level surface and place on higher surface a total of 2 x10 times with no hip pain. LTG Duration 04/20/23 1 Impairment Difficult to walk/stand for long periods of time. Short Term Goal (STG) Pt will be able to stand/walk for >= 30 min with bilat hip pain <=4/10. STG Duration 03/16/23 Halfway Goal (LTG) Pt will be able to stand/walk for >= 45 min with minimal to no bilat hip pain LTG Duration 04/20/23 Assessment Summary Assessment Pt was called to adjust appts and pt reports that he is doing well and no longer needs PT. DC at this time per pt request as he reports he feels good at this time. Physical Therapy Plan Discharge Physical Therapy Discharge Reasons Patient Request
== END 2023-03-21 12:48 | disposition home or self-care (01) ==
LOC: PHYS 08:15
PROVIDERS: Absent Provider Student in an Organized Health Care Education/Training Program; Family Provider Student in an Organized Health Care Education/Training Program; PCP Student in an Organized Health Care Education/Training Program; Referring Provider Student in an Organized Health Care Education/Training Program; Visit Provider Student in an Organized Health Care Education/Training Program
DX: M25.551 Pain in right hip (principal); M25.552 Pain in left hip
CPT/HCPCS: 97110; 97140; 97161

== ENCOUNTER 2023-03-23 09:37 | Day surgery (SDC) | payer MEDICARE, SELFPAY ==
--- NOTE | 2023-03-23 | PATH_ITS ---
[facility] Accession Number: [id number] No. of containers..01 Tissue . 01 Material submitted: . rectum - RECTAL POLYP . 01 Diagnosis: Rectal Polyp: Hyperplastic polyp. MRV 03/28/2023 1353 Local . 01 Electronically signed: . Ramone Reynolds MD, PhD, Pathologist NPI- [id number] . 01 Gross description: . RECTAL POLYP: Received in formalin is 1 fragment(s) of mejia, soft tissue measuring 0.3 x 0.3 x 0.3 cm submitted entirely in 1 cassette(s) /TRC 03/24/2023 1550 Local . 01 Pathologist provided ICD-10: K62.1 . 01 CPT . 741893 Specimen Comment: A courtesy copy of this report has been sent to [phone] Performed at: 01 [facility] [address] [place] [address], [place], [place] [id number] MD Dimitri Haynes MD Phone: [phone]
[2023-03-23] MEDS: LACTATED RINGERS 1,000 ML 42 ML IV (10:03)
[2023-03-23 10:14] VITALS: BP 129/81; PULSE 62; RESP 20; TEMP 36.1; O2SAT 98; BMI 25.1
--- NOTE | 2023-03-23 10:50 | PM.HP.1 ---
History of Present Illness History of Present Illness Date Patient Seen: 03/23/23 Time Patient Seen: 10:50 Chief complaint: Screening Colonoscopy Narrative: Jong Gutierrez is a 67-year-old man who is here for his colonoscopy. His last 1 was in 2018 and a hyperplastic polyp was removed. He has had rectal bleeding and hemorrhoid banding within the past few years. He had an episode many years ago where he had thrombosed internal hemorrhoids that were treated in [facility]. [facility] Medical History Colon polyps Hemorrhoid Shoulder pain Social History household members: none Smoking Status: Current every day smoker alcohol intake: current substance use type: does not use Meds Home Medications and Allergies Home Medications Medication Instructions Recorded Confirmed Type [MULTIPLE VITAMINS] 1 tab PO QDAY ##0 11/07/12 03/23/23 History albuterol sulfate 90 mcg/actuation 2 puff inhalation Q4H PRN 03/23/22 03/23/23 Rx aerosol inhaler (Ventolin HFA) shortness of breath or wheezing #18 grams atorvastatin 20 mg tablet 20 mg PO QPM 01/23/23 03/23/23 History metoprolol succinate 25 mg 25 mg PO DAILY 01/23/23 03/23/23 History tablet,extended release 24 hr Allergies Allergy/AdvReac Type Severity Reaction Status Date / Time penicillin G Allergy Mild HIVES Verified 03/23/23 10:05 Exam Vital Signs (past 8 hours): - 03/23/23 10:14 Temperature 97 F L Pulse Rate 62 Respiratory Rate 20 Blood Pressure 129/81 Pulse Oximetry 98 Oxygen Delivery Method Room Air Oxygen Delivery Method Room Air Const General: healthy appearing Assessment & Plan Assessment and plan (1) Colon cancer screening: Status: Acute Plan We reviewed the risks and benefits of colonoscopy for colon cancer screening and he would like to proceed
--- NOTE | 2023-03-23 12:47 | PM.OP.COLON ---
Operative Date/Time/Diagnoses Date of procedure: 03/23/23 Time of procedure: 12:47 Pre-op diagnosis: Cancer screening and hemorrhoids Post-op diagnosis: same Procedure & Clinicians Study performed: Colonoscopy and rubber-band ligation Same procedure as scheduled: Yes Surgeon: Jong Whiting Procedure Notes Procedure in detail: Surgeon: Jong Whiting MD Anesthesia: Randi Thompson EDGE BONDER Procedure: The patient was brought to the endoscopy suite, placed in left lateral decubitus position. The patient was connected to monitoring devices. A time-out was performed. Sedation was administered. Once the patient was adequately sedated, a digital rectal exam was performed and a left internal hemorrhoid was reduced. The scope was then inserted and advanced to the cecum where the appendiceal orifice was identified and photographed. The scope was then slowly withdrawn over greater than 6 minutes. The mucosa was thoroughly inspected. Was a 2 mm rectal polyp removed with the Jumbo forceps. The scope was retroflexed in the rectum. Some internal hemorrhoids were seen. The scope was straightened and removed. Next rubber-band ligation was performed. Rubber bands were placed in the right posterior and left lateral position. The patient was awakened and brought to recovery. Scope withdrawal time: 13 minutes Sedation time: 17 minutes EBL: 2 mL Findings: Small rectal polyp and internal hemorrhoids Post-procedure Disposition: PACU
[2023-03-23 12:49] VITALS: BP 105/59; PULSE 54; RESP 23; TEMP 36.4; O2SAT 100
[2023-03-23 12:55] VITALS: BP 97/62; PULSE 56; RESP 12; O2SAT 95
[2023-03-23 12:58] VITALS: PULSE 58; RESP 15; TEMP 36.4; O2SAT 96
[2023-03-23 12:59] VITALS: BP 115/66
== END 2023-03-23 13:05 | disposition home or self-care (01) ==
PROVIDERS: Family Provider Student in an Organized Health Care Education/Training Program; PCP Student in an Organized Health Care Education/Training Program; Referring Provider Surgery; Visit Provider Surgery
PROC: 0DJD8ZZ Inspection of Lower Intestinal Tract, Via Natural or Artificial Opening Endoscopic (ICD-10-PCS; CPT 45378; principal; 2023-03-23 10:45)
DX: Z12.11 Encounter for screening for malignant neoplasm of colon (principal); K64.8 Other hemorrhoids; K62.1 Rectal polyp
CPT/HCPCS: 45380; 46221; J2704

== ENCOUNTER → 2023-08-10 15:10 | Outpatient (CLI) | payer MEDICARE, SELFPAY ==
--- NOTE | 2023-08-10 15:11 | DI.RAD.S_ITS ---
PROCEDURE: XR HIP W PEL IF DONE BILAT 2V INDICATIONS: Hip pain TECHNIQUE: AP pelvis with lateral view(s) of the left on the right hip(s). COMPARISON: None. FINDINGS: Bones: No fractures or dislocations. Pelvic ring appears intact. No suspicious bony lesions. Mild osteoarthritis bilaterally. Soft tissues: The visualized bowel gas pattern is normal. No suspicious soft tissue calcifications. IMPRESSION: Mild osteoarthritis. Dictated by: Rika Stanton M.D. on 08/10/2023 at 16:29 Approved by: Rika Stanton M.D. on 08/10/2023 at 16:30
== END ==
PROVIDERS: Family Provider Student in an Organized Health Care Education/Training Program; PCP Student in an Organized Health Care Education/Training Program; Referring Provider Nurse Practitioner Family; Visit Provider Nurse Practitioner Family
DX: M16.0 Bilateral primary osteoarthritis of hip (principal); M25.551 Pain in right hip; M25.552 Pain in left hip
CPT/HCPCS: 73521

== ENCOUNTER 2023-08-25 23:27 | Emergency (ER) | payer MEDICARE, SELFPAY ==
[2023-08-25 23:38] VITALS: BP 135/80; PULSE 75; RESP 16; TEMP 36.4; O2SAT 94
--- NOTE | 2023-08-26 00:52 | ED_ITS ---
HPI - Dental/Oral General Chief complaint: Dental/Oral Stated complaint: having reaction from meds rt side face swollen Time Seen by Provider: 08/26/23 00:52 Source: patient Mode of arrival: Ambulatory History of Present Illness HPI Narrative: Patient is a 68-year-old male who presents with ongoing dental infection. He reports he has been on clindamycin for the last 4 days he is scheduled to have a tooth extraction next week. However he continues to have pain and today has increased swelling. No difficulty breathing or swallowing. No fever chills. No redness. He reports that he is allergic to penicillin but he was told that as a small child he is not ever actually had it. Related Data Home Medications Medication Instructions Recorded Confirmed [MULTIPLE VITAMINS] 1 tab PO QDAY ##0 11/07/12 08/10/23 atorvastatin 20 mg tablet 20 mg PO QPM 01/23/23 08/10/23 metoprolol succinate 25 mg 25 mg PO DAILY 01/23/23 08/10/23 tablet,extended release 24 hr Previous Rx's Medication Instructions Recorded albuterol sulfate 90 mcg/actuation 2 puff inhalation Q4H PRN 03/23/22 aerosol inhaler (Ventolin HFA) shortness of breath or wheezing #18 grams cefuroxime axetil 500 mg tablet 500 mg PO BID #14 tabs 08/26/23 hydrocodone 5 mg-acetaminophen 325 1 tab PO Q6H PRN pain #10 tabs 08/26/23 mg tablet Allergies Allergy/AdvReac Type Severity Reaction Status Date / Time penicillin G Allergy Mild HIVES Verified 08/10/23 14:41 Review of Systems Review of Systems ROS Unobtainable: All systems reviewed & are unremarkable except as noted in HPI and below Patient History Medical History Shoulder pain Hemorrhoid Colon polyps Social History household members: none Smoking Status: Current every day smoker alcohol intake: current substance use type: does not use Smoking Status: Current every day smoker tobacco type: cigarettes alcohol intake frequency: a few times a week Substance Use Type: does not use Exam Initial Vital Signs Initial Vital Signs: Vital Signs Temperature 97.6 F 08/25/23 23:38 Pulse Rate 75 10/06/23 23:38 Respiratory Rate 16 08/25/23 23:38 Blood Pressure 135/80 08/25/23 23:38 Pulse Oximetry 94 08/25/23 23:38 Oxygen Delivery Method Room Air 08/25/23 23:38 GENERAL: Well-appearing, well-nourished and in no acute distress. MOTH: Pain around tooth 29/30, with chipped tooth. Cheek is mildly swollen no significant erythema no trismus no obvious dental abscess CARDIOVASCULAR: peripheral pulses in tact, cap refill <2 sec RESPIRATORY: No respiratory distress, speaks in full sentences without difficulty EXTREMITIES: Normal range of motion, no clubbing or edema. Neurovascularly intact NEUROLOGICAL: Cranial nerves II through XII grossly intact. Normal gait and speech. SKIN: Warm, dry, no petechiae, no rashes or lesions. Course Orders Ordered: Discontinued Medications Hydrocodone Bitart/Acetaminophen (Hydrocodone/Acet 5/325 Prepack) 1 bottle MISC SEEINSTR ONE Stop: 08/26/23 01:09 Last Admin: 08/26/23 01:26 Dose: 1 bottle Documented By: EVERT Cefuroxime Axetil (Cefuroxime 250 Mg Tablet) 500 mg PO NOW ONE Stop: 08/26/23 01:12 Last Admin: 08/26/23 01:25 Dose: 500 mg Documented By: EVERT Vital Signs Vital signs: Vital Signs - 8 hr 08/25/23 23:38 08/26/23 01:35 Temperature 97.6 F 97.5 F L Pulse Rate 75 74 Respiratory Rate 16 16 Blood Pressure 135/80 130/70 Pulse Oximetry 94 98 Oxygen Delivery Method Room Air Room Air MDM - Dental/Oral MDM Narrative Medical decision making narrative: Patient has ongoing dental infection he has been on 4 days of clindamycin was increased swelling and pain. No obvious source of sepsis no concern for Shai's angina or deep neck infection. Is allergic to penicillin but was told to has a small child we discussed using it however cephalosporin maybe a better alternative. We will start him on Ceftin, continue clindamycin give pain meds and he is scheduled to see a dentist next week. Discharge Plan Departure Patient Disposition: Home Clinical Impression: Dental infection Instructions: DI for Dental Pain Activity Restrictions/Additional Instructions: *You have been diagnosed with dental infection *What to do: At this time change appear antibiotic. Please see her dentist for further treatment *Continue to take medications as directed-->[facility] Continue taking clindamycin Start taking Ceftin 500 mg twice a day [place] 1 tablet every 6 hours if needed for severe pain Motrin 600 mg every 6 hours if needed for [id number] pain *Follow up with your primary care provider in 2-3 days or call [phone] *Return to ER if you should have increasing pain swelling redness difficulty opening mouth difficulty swallowing or any new, worsening or concerning symptoms CONTROLLED SUBSTANCE DISCHARGE (Narcotoic/benzodiazepine/Flexeril/Phenergan) 1. You have been prescribed narcotic medications, it does have acetaminophen/Tylenol/paracetamol in it, DO NOT TAKE MORE THAN 4,00mg in 24 hours of Tylenol. TRAMADOL DOES NOT CONTAIN TYLENOL 2. Please understand that we cannot provide further refills of narcotics, benzodiazepines or controlled substances through the ED and her pain management will need to be through your provider. 3. While on these medications you cannot drive or operate heavy machinery. 4. You cannot sign legal documents or perform any duties such as this. 5. As long as you're taking opiate pain medications he should also be taking a stool softener such as Colace, Dulcolax, MiraLAX or prune juice, to help avoid constipation. Prescriptions: New cefuroxime axetil 500 mg tablet 500 mg PO BID Qty: 14 0RF hydrocodone-acetaminophen 5-325 mg tablet 1 tab PO Q6H PRN (Reason: pain) Qty: 10 0RF No Action [MULTIPLE VITAMINS] 1 tab PO QDAY Qty: 0 albuterol sulfate [Ventolin HFA] 90 mcg/actuation HFA aerosol inhaler 2 puff inhalation Q4H PRN (Reason: shortness of breath or wheezing) Qty: 18 11RF metoprolol succinate 25 mg tablet extended release 24 hr 25 mg PO DAILY atorvastatin 20 mg tablet 20 mg PO QPM Referrals: Ernesto Newell MD [Primary Care Provider] - Stand Alone Forms: Patient Portal/API
[2023-08-26] MEDS: cefUROXime 250 MG TABLET 500 MG PO (01:25)
[2023-08-26] MEDS: HYDROCODONE/ACET 5/325 PREPACK 1 BOTTLE MISC (01:26)
[2023-08-26 01:35] VITALS: BP 130/70; PULSE 74; RESP 16; TEMP 36.4; O2SAT 98
== END 2023-08-26 01:36 | disposition home or self-care (01) ==
PROVIDERS: Emergency Provider Emergency Medicine; Family Provider Student in an Organized Health Care Education/Training Program; PCP Student in an Organized Health Care Education/Training Program
DX: K04.7 Periapical abscess without sinus (principal); Z88.0 Allergy status to penicillin
CPT/HCPCS: 99283

== ENCOUNTER → 2024-05-01 11:30 | Outpatient (CLI) | payer MEDICARE, SELFPAY ==
[2024-05-01 12:23] LABS: Hemoglobin A1C% w Est Avg Glu 5.3 % (4.0-6.0)
[2024-05-01 12:24] LABS: Add Manual Diff / Slide Review NO; Basophils Absolute Auto 0 /uL (0-100); Basophils Percent Auto 0.6 % (0-2); Eosinophils Absolute Auto 100 /uL (0-450); Eosinophils Percent Auto 2.3 % (2-4); Hematocrit 43.3 % (41-53); Hemoglobin 14.8 g/dL (13.5-17.5); Lymphocytes Absolute Auto 2100 /uL (1100-4500); Lymphocytes Percent Auto 34.4 % (25-40); Mean Corpuscular HGB Conc 34.1 % (30-36); Mean Corpuscular Volume 99.6 fL (80-100); Monocytes Absolute Auto 400 /uL (0-900); Monocytes Percent Auto 6.5 % (3-14); Neutrophils Absolute Auto 3400 /uL (1500-7000); Neutrophils Percent Auto 56.2 % (50-75); Platelet Count 249 X10^3/uL (150-400); Red Blood Cell Count 4.35 X10^6/uL (4.5-5.9); Red Cell Distribution Width 13.7 % (11.6-14.8); White Blood Cell Count 6.1 X10^3/uL (4.5-11.0)
[2024-05-01 12:34] LABS: Alanine Aminotransferase 23 IU/L (<50); Albumin 4.3 g/dL (3.5-5.0); Albumin Globulin Ratio 1.7 (1.0-2.8); Alkaline Phosphatase 63 U/L (38-126); Aspartate Aminotransferase 30 IU/L (17-59); BUN Creatinine Ratio 31.3 (6-22); Bilirubin Total 0.6 mg/dL (0.2-1.3); Blood Urea Nitrogen 20 mg/dL (9-20); Calcium 9.1 mg/dL (8.4-10.2); Carbon Dioxide 25 mmol/L (22-32); Chloride 110 mmol/L (98-107); Cholesterol 229 mg/dL (140-199); Estimated Glomerular Filt Rate > 60 mL/min (>60); Globulin 2.5 g/dL (1.7-4.1); Glucose 100 mg/dL (80-110); HDL Cholesterol 69 mg/dL (40-60); HEMOLYSIS 19 (0-50); LDL Cholesterol Calculated 134 mg/dL (<100); Potassium 4.4 mmol/L (3.4-5.1); Sodium 138 mmol/L (137-145); Total Protein 6.8 g/dL (6.3-8.2); Triglycerides 131 mg/dL (35-150)
[2024-05-01 12:56] LABS: Free T4, Direct Thyroxine 1.05 ng/dL (0.78-2.19)
[2024-05-01 13:10] LABS: Thyroid Stimulating Hormone 1.17 uIU/mL (0.47-4.68)
== END ==
LOC: LAB 11:32
PROVIDERS: Family Provider Student in an Organized Health Care Education/Training Program; PCP Family Medicine; Visit Provider Nurse Practitioner Family
DX: Z13.1 Encounter for screening for diabetes mellitus (principal); I25.10 Atherosclerotic heart disease of native coronary artery without angina pectoris; I10 Essential (primary) hypertension; E78.5 Hyperlipidemia, unspecified; Z95.5 Presence of coronary angioplasty implant and graft
CPT/HCPCS: 36415; 80053; 80061; 83036; 84439; 84443; 85025

== ENCOUNTER → 2024-08-27 14:22 | Outpatient (CLI) | payer MEDICARE, SELFPAY ==
--- NOTE | 2024-08-27 14:23 | DI.RAD.S_ITS ---
PROCEDURE: XR CHEST 2V INDICATIONS: cough x 2 wks, left lung rhonchi/wheeze. R/O pneumonia TECHNIQUE: 2 views of the chest were acquired. COMPARISON: None. FINDINGS: Surgical changes and devices: None. Lungs and pleura: Lungs are clear. No pleural effusions or pneumothorax. Mediastinum: Mediastinal contours are normal. Heart size is normal. Bones and chest wall: No suspicious bony abnormalities. Soft tissues appear unremarkable. IMPRESSION: No acute pulmonary process. Dictated by: Beatrice Tobias M.D. on 08/27/2024 at 15:11 Approved by: Beatrice Tobias M.D. on 08/27/2024 at 15:11
== END ==
PROVIDERS: Family Provider Student in an Organized Health Care Education/Training Program; PCP Family Medicine; Referring Provider Physician Assistant Medical; Visit Provider Physician Assistant Medical
DX: R05.9 Cough, unspecified (principal)
CPT/HCPCS: 71046

== ENCOUNTER → 2024-09-10 09:30 | Outpatient (CLI) | payer MEDICARE, SELFPAY | PROVIDERS: Family Provider Student in an Organized Health Care Education/Training Program; PCP Family Medicine; Referring Provider Family Medicine; Visit Provider Family Medicine | DX: J45.901 Unspecified asthma with (acute) exacerbation (principal); R94.2 Abnormal results of pulmonary function studies; R05.1 Acute cough; F17.210 Nicotine dependence, cigarettes, uncomplicated | CPT/HCPCS: 94060; 94726; 94729 ==

== ENCOUNTER → 2024-09-10 12:40 | Outpatient (CLI) | payer MEDICARE, SELFPAY ==
--- NOTE | 2024-09-10 12:42 | DI.CT.S_ITS ---
PROCEDURE: CT LUNG LOW DOSE SCREENING INDICATIONS: lung cancer screening TECHNIQUE: Noncontrast 2.0-2.5 mm thick sections acquired from the pulmonary apices to the posterior costophrenic angles. 7 mm thick axial MIP, and 5 mm coronal and sagittal reformats were then acquired. For radiation dose reduction, the following was used: automated exposure control, adjustment of mA and/or kV according to patient size. COMPARISON: None. FINDINGS: Image quality: Diagnostic. Lower Neck: No enlarged lymph nodes. Thyroid: No thyroid nodules which require sonographic follow up, per consensus guidelines. Axillae: No enlarged lymph nodes. Chest Wall: Unremarkable. Bones: No aggressive appearing bony lesions. Lungs and Pleura: No pneumothorax or pleural effusions. Linear scarring/atelectasis of bilateral lung bases are seen. Mild centrilobular emphysematous changes are seen. No airspace consolidations or suspicious pulmonary nodules that requires follow up. Heart: Heart size is normal. No pericardial effusion. Thoracic Vessels: The aorta and pulmonary arteries demonstrate normal size. [id number] 2 vessel coronary atherosclerotic artery calcifications. Mediastinum and Theresa: No enlarged lymph nodes. Esophagus: No wall thickening. No hiatal hernia. Upper Abdomen: Visualized upper abdomen solid organs and bowel loops appear normal. IMPRESSION: 1. No suspicious pulmonary nodules. 2. Bibasilar scarring/atelectasis. Mild centrilobular emphysema. LUNG-RADS 1; continued annual screening, if eligible. Clinically Significant Non-pulmonary Findings: [id number] 2 vessel coronary artery atherosclerotic calcifications. Dictated by: Alexandru Velez M.D. on 09/10/2024 at 16:22 Approved by: Alexandru Velez M.D. on 09/10/2024 at 16:29
== END ==
PROVIDERS: Family Provider Student in an Organized Health Care Education/Training Program; PCP Family Medicine; Referring Provider Family Medicine; Visit Provider Family Medicine
DX: F17.210 Nicotine dependence, cigarettes, uncomplicated (principal); J43.2 Centrilobular emphysema; Z12.2 Encounter for screening for malignant neoplasm of respiratory organs; R05.9 Cough, unspecified; J45.901 Unspecified asthma with (acute) exacerbation; R94.2 Abnormal results of pulmonary function studies; R05.1 Acute cough
CPT/HCPCS: 71271; 94060; 94726; 94729

== ENCOUNTER → 2025-02-08 09:44 | Outpatient (CLI) | payer MEDICARE, SELFPAY ==
[2025-02-08 10:53] LABS: Add Manual Diff / Slide Review NO; Basophils Absolute Auto 0 /uL (0-100); Basophils Percent Auto 0.5 % (0-2); Eosinophils Absolute Auto 100 /uL (0-450); Hematocrit 42.7 % (41-53); Hemoglobin 14.5 g/dL (13.5-17.5); Lymphocytes Absolute Auto 2000 /uL (1100-4500); Lymphocytes Percent Auto 33.3 % (25-40); Mean Corpuscular HGB Conc 33.9 % (30-36); Mean Corpuscular Hemoglobin 33.6 PG (26-34); Mean Corpuscular Volume 98.9 fL (80-100); Monocytes Absolute Auto 400 /uL (0-900); Monocytes Percent Auto 6.4 % (3-14); Neutrophils Absolute Auto 3500 /uL (1500-7000); Neutrophils Percent Auto 57.8 % (50-75); Platelet Count 216 X10^3/uL (150-400); Red Blood Cell Count 4.32 X10^6/uL (4.5-5.9); Red Cell Distribution Width 13.4 % (11.6-14.8); White Blood Cell Count 6.1 X10^3/uL (4.5-11.0)
[2025-02-08 11:37] LABS: Alanine Aminotransferase 25 IU/L (<50); Albumin 4.5 g/dL (3.5-5.0); Albumin Globulin Ratio 2.1 (1.0-2.8); Alkaline Phosphatase 70 U/L (38-126); Aspartate Aminotransferase 33 IU/L (17-59); BUN Creatinine Ratio 29.2 (6-22); Bilirubin Total 0.9 mg/dL (0.2-1.3); Blood Urea Nitrogen 21 mg/dL (9-20); Calcium 9.6 mg/dL (8.4-10.2); Carbon Dioxide 27 mmol/L (22-32); Chloride 103 mmol/L (98-107); Cholesterol 174 mg/dL (140-199); Estimated Glomerular Filt Rate > 60 mL/min (>60); Globulin 2.1 g/dL (1.7-4.1); Glucose 92 mg/dL (80-110); HDL Cholesterol 70 mg/dL (40-60); HEMOLYSIS < 15 (0-50); LDL Cholesterol Calculated 90 mg/dL (<100); Potassium 4.7 mmol/L (3.4-5.1); Sodium 136 mmol/L (137-145); Total Protein 6.6 g/dL (6.3-8.2); Triglycerides 69 mg/dL (35-150)
[2025-02-08 11:50] LABS: Hemoglobin A1C% w Est Avg Glu 5.1 % (4.0-6.0)
[2025-02-08 12:04] LABS: Free T4, Direct Thyroxine 1.15 ng/dL (0.78-2.19)
[2025-02-08 12:18] LABS: Thyroid Stimulating Hormone 1.67 uIU/mL (0.47-4.68)
== END ==
PROVIDERS: PCP Family Medicine; Visit Provider Nurse Practitioner Family
DX: I25.10 Atherosclerotic heart disease of native coronary artery without angina pectoris (principal); Z13.1 Encounter for screening for diabetes mellitus; I10 Essential (primary) hypertension; Z95.5 Presence of coronary angioplasty implant and graft; E78.5 Hyperlipidemia, unspecified
CPT/HCPCS: 36415; 80053; 80061; 83036; 84439; 84443; 85025

== ENCOUNTER → 2025-04-07 09:36 | Outpatient (CLI) | payer MEDICARE, SELFPAY | PROVIDERS: PCP Family Medicine; Referring Provider Family Medicine; Visit Provider Family Medicine | DX: Z12.5 Encounter for screening for malignant neoplasm of prostate (principal) | CPT/HCPCS: 36415; G0103 ==

== ENCOUNTER → 2025-10-25 11:41 | Outpatient (CLI) | payer MEDICARE, SELFPAY ==
--- NOTE | 2025-10-25 11:42 | DI.CT.S_ITS ---
PROCEDURE: CT LUNG LOW DOSE SCREENING INDICATIONS: lung cancer screening TECHNIQUE: Noncontrast 2.0-2.5 mm thick sections acquired from the pulmonary apices to the posterior costophrenic angles. 7 mm thick axial MIP, and 5 mm coronal and sagittal reformats were then acquired. For radiation dose reduction, the following was used: automated exposure control, adjustment of mA and/or kV according to patient size. COMPARISON: [facility], CT, CT LUNG LOW DOSE SCREENING, 09/10/2024, 13:00. FINDINGS: Image quality: Diagnostic. Lower Neck: No enlarged lymph nodes. Thyroid: No thyroid nodules which require sonographic follow up, per consensus guidelines. Axillae: No enlarged lymph nodes. Chest Wall: Unremarkable. Bones: Unremarkable. Lungs and Pleura: No pneumothorax or pleural effusions. No consolidation or suspicious nodules. Mild emphysematous changes. Linear scarring at the bases is unchanged. Heart: Heart size is normal. No pericardial effusion. [id number] coronary calcifications. Thoracic Vessels: The aorta and pulmonary arteries demonstrate normal size. Mediastinum and Theresa: No enlarged lymph nodes. Esophagus: No wall thickening. No hiatal hernia. Upper Abdomen: Visualized upper abdomen solid organs and bowel loops appear normal. IMPRESSION: No suspicious pulmonary nodules. Stable interval exam. LUNG-RADS 1; continued annual screening, if eligible. Clinically Significant Non-pulmonary Findings: Coronary calcifications. Dictated by: Beatrice Tobias M.D. on 10/25/2025 at 18:12 Approved by: Beatrice Tobias M.D. on 10/25/2025 at 18:13
== END ==
LOC: CT 11:41
PROVIDERS: PCP Family Medicine; Referring Provider Family Medicine; Visit Provider Family Medicine
DX: Z12.2 Encounter for screening for malignant neoplasm of respiratory organs (principal); F17.210 Nicotine dependence, cigarettes, uncomplicated; J43.9 Emphysema, unspecified; I25.10 Atherosclerotic heart disease of native coronary artery without angina pectoris
CPT/HCPCS: 71271